=== PATIENT | female | born 1935 | race Caucasian/White ===

== ENCOUNTER → 2017-03-07 | Outpatient (CLI) | payer MEDICARE ==
--- NOTE | 2017-03-07 16:09 | BD ---
EXAMINATION TYPE: MG DEXA axial skeleton. DATE OF EXAM: 03/07/2017 COMPARISON: 2011 CLINICAL HISTORY: post menopausal Height: 5'3 1/2 Weight: 210 FRAX RISK QUESTIONS: Alcohol (3 or more units per day): no Family History (Parent hip fracture): yes Glucocorticoids (More than 3mos): no (Ex: prednisone, prednisolone, methylprednisolone, dexamethasone, and hydrocortisone). History of Fracture in Adulthood: no Secondary Osteoporosis: 1. Type 1 Diabetes: no 2. Hyperthyroidism: no 3. Menopause before 45: yes 4. Malnutrition: no 5. Chronic liver disease: no Rheumatoid Arthritis: no Current Tobacco Use: no RISK FACTORS HISTORY OF: Family History of Osteoporosis: Active: Postmenopausal woman: MEDICATIONS: Thyroid Medications: Which medication: Levothyroxine How Lon-3 years Additional Medications: heart rythmn, cholesterol, type 2 diabetes, kidney meds Additional History: EXAM MEASUREMENTS: Bone mineral densitometry was performed using the [employer] System. Bone mineral density as measured about the Lumbar spine is: ----- L1-L4(G/cm2): 1.375 T Score Values are as follows: ----- L2: -0.2 ----- L3: 1.8 ----- L4: 2.6 ----- L1-L4:1.0 Bone mineral density has: Increased 3.5% since study of: 05/18/2012 Bone mineral density about the R hip (g/cm2): 1.287 Bone mineral density about the L hip (g/cm2): 1.114 T Score values are as follows: -----R Neck: 1.8 -----L Neck: 0.5 -----R Total: 1.4 -----L Total: 1.0 Bone mineral density has: Decreased -1.9% since study of: 05/18/2012 IMPRESSION: Normal (Values between +1 and -1 indicate normal bone mass). Consider repeating this study in 5 year s or sooner if there is some new clinical indication. NOTE: T-SCORE=SD OF THE YOUNG ADULT MEAN.
--- NOTE | 2017-03-08 13:10 | MM ---
Reason for exam: screening (asymptomatic). Last mammogram was performed 4 years and 10 months ago. History: Patient is postmenopausal and has history of other cancer at age 80. Took estrogen for 10 years beginning at age 57. Physical Findings: A clinical breast exam by your physician is recommended on an annual basis and results should be correlated with mammographic findings. MG 3D Screening Mammo W/Cad Bilateral CC and MLO view(s) were taken. Prior study comparison: May 18, 2012, bilateral digital screening mammo w/CAD. May 14, 2011, bilateral digital screening mammo w/CAD. April 09, 2010, bilateral digital screening mammogram. The breast tissue is almost entirely fat. No significant changes when compared with prior studies. ASSESSMENT: Negative, BI-RAD 1 RECOMMENDATION: Routine screening mammogram of both breasts in 1 year.
== END | disposition home or self-care (01) ==
LOC: RADMAMWWP 15:05
PROVIDERS: ATTEND Internal Medicine
DX: Z12.31 Encounter for screening mammogram for malignant neoplasm of breast (principal); Z78.0 Asymptomatic menopausal state
CPT/HCPCS: 77080; 77063; G0202

== ENCOUNTER → 2019-03-28 | Outpatient (CLI) | payer MEDICARE ==
--- NOTE | 2019-04-13 12:00 | EM ---
EVENT MONITOR AGE: 83 SEX: Female. INDICATIONS: Patient was monitored between the 28 of March and the March. The rhythm strip reviewed showed an underlying sinus mechanism with an episode of atrial tachycardia with single PVCs noted. There was episode of sinus arrhythmia. The arrhythmia was not associated with any reported symptoms. MMRONDA / ALYN: [id number] /
== END ==
LOC: RADECHMAIN 11:36
PROVIDERS: ATTEND Internal Medicine
DX: I49.9 Cardiac arrhythmia, unspecified (principal)
CPT/HCPCS: 93270

== ENCOUNTER → 2020-04-01 | Outpatient (CLI) | payer MEDICARE ==
--- NOTE | 2020-04-01 19:37 | CT ---
EXAMINATION TYPE: CT brain wo con DATE OF EXAM: 04/01/2020 COMPARISON: None HISTORY: Stroke, post tpa. H/o falls. CT DLP: 1317 mGycm Automated exposure control for dose reduction was used. FINDINGS: Moderate generalized degenerative change. Low-attenuation in the white matter is nonspecific but most typical remote microvascular ischemia. No midline shift. Dental artifact noted. Intraorbital structures have a normal appearance. No changes of sinusitis. Craniocervical junction ma intained. Sella turcica normal. IMPRESSION: DEGENERATIVE AND NONSPECIFIC WHITE MATTER CHANGES MOST TYPICAL OF REMOTE MICROVASCULAR ISCHEMIA WITH NO DEFINITE ACUTE PROCESS.
== END | disposition home or self-care (01) ==
LOC: RADCTMAIN 16:55
PROVIDERS: ATTEND Internal Medicine
DX: G31.9 Degenerative disease of nervous system, unspecified (principal)
CPT/HCPCS: 70450

== ENCOUNTER → 2021-01-14 | Outpatient (CLI) | payer MEDICARE ==
--- NOTE | 2021-01-15 07:22 | US ---
EXAMINATION TYPE: US kidneys/renal and bladder DATE OF EXAM: 01/14/2021 COMPARISON: NONE CLINICAL HISTORY: N18.2 stage 2 kidney disease. EXAM MEASUREMENTS: Right Kidney: 10.0 x 4.3 x 3.9 cm Left Kidney: 10.1 x 4.8 x 4.5 cm Right Kidney: No hydronephrosis or masses seen Left Kidney: No hydronephrosis or masses seen Bladder: wnl Bilateral Jets seen: no There is no evidence for hydronephrosis at this point in time. No nephrolithiasis is seen. No josue s are identified. The urinary bladder is anechoic. IMPRESSION: No hydronephrosis.
== END | disposition home or self-care (01) ==
LOC: RADUSWWP 15:49
PROVIDERS: ATTEND Internal Medicine
DX: N18.2 Chronic kidney disease, stage 2 (mild) (principal)
CPT/HCPCS: 76770

== ENCOUNTER → 2021-11-10 | Outpatient (CLI) | payer MEDICARE ==
--- NOTE | 2021-11-10 12:45 | BD ---
EXAMINATION TYPE: Axial Bone Density DATE OF EXAM: 11/10/2021 COMPARISON: NONE CLINICAL HISTORY: 86 years year old Female. ICD-10 CODE: M81.0 Age-related osteoporosis without curr ent pathological Height: 63 Weight: 196.0 FRAX RISK QUESTIONS: Alcohol (3 or more units per day): no Family History (Parent hip fracture): yes Glucocorticoids (More than 3mos): no (Ex: prednisone, prednisolone, methylprednisolone, dexamethasone, and hydrocortisone). History of Fracture in Adulthood: no Secondary Osteoporosis: 1. Type 1 Diabetes: no 2. Hyperthyroidism: no 3. Menopause before 45: yes 4. Malnutrition: no 5. Chronic liver disease: no Rheumatoid Arthritis: no Current Tobacco Use: no RISK FACTORS HISTORY OF: Surgery to Spine/Hip(right/left)/Wrist (right/left): no Family History of Osteoporosis: yes Active: no Diet low in dairy products/other sources of calcium: no Postmenopausal woman: yes Lost more than 2 inches in height since high school: yes MEDICATIONS:diabetic meds Thyroid Medications: levothyroxine How Long: long time Additional History: EXAM MEASUREMENTS: Bone mineral densitometry was performed using the [employer] System. Bone mineral density as measured about the Lumbar spine is: ----- L1-L4(G/cm2): 1.462 T Score Values are as follows: ----- L1: -0.2 ----- L2: 3.0 ----- L3: 1.7 ----- L4: 4.3 ----- L1-L4: 2.3 Bone mineral density has: increased 13.7 % since study of: 03.07.2017 Bone mineral density about the R hip (g/cm2): 1.327 Bone mineral density about the L hip (g/cm2): 1.180 T Score values are as follows: -----R Neck: 2.1 -----L Neck: 1.0 -----R Total: 1. -----L Total: 1.3 Bone mineral density has:increased 1.6% since study of 03.07.2017 FRAX%s: The graph provided illustrates a 8.6%chance for a major osteoporotic fx and a 2.7%ance for th e hips probability for fx in 10 years time. IMPRESSION: Normal (Values between +1 and -1 indicate normal bone mass). Consider repeating this study in 5 year s or sooner if there is some new clinical indication. NOTE: T-SCORE=SD OF THE YOUNG ADULT MEAN.
--- NOTE | 2021-11-11 11:23 | MM ---
Reason for exam: screening (asymptomatic). Last mammogram was performed 4 years and 8 months ago. History: Patient is postmenopausal and has history of other cancer at age 80. Took estrogen for 10 years beginning at age 57. Physical Findings: A clinical breast exam by your physician is recommended on an annual basis and results should be correlated with mammographic findings. MG 3D Screening Mammo W/Cad Bilateral CC, MLO, and XCCL view(s) were taken. Prior study comparison: March 07, 2017, bilateral MG 3d screening mammo w/cad. May 18, 2012, bilateral digital screening mammo w/CAD. There are scattered fibroglandular densities. There is no discrete abnormality. No significant changes when compared with prior studies. ASSESSMENT: Negative, BI-RAD 1 RECOMMENDATION: Routine screening mammogram of both breasts in 1 year.
== END | disposition home or self-care (01) ==
LOC: RADMAMWWP 11:32
PROVIDERS: ATTEND Internal Medicine
DX: Z12.31 Encounter for screening mammogram for malignant neoplasm of breast (principal); M81.0 Age-related osteoporosis without current pathological fracture; I34.0 Nonrheumatic mitral (valve) insufficiency; I65.23 Occlusion and stenosis of bilateral carotid arteries
CPT/HCPCS: 77063; 77067; 77080

== ENCOUNTER → 2023-11-16 | Outpatient (CLI) | payer MEDICARE ==
--- NOTE | 2023-11-16 15:14 | US ---
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 Indirect Doppler criteria was utilized. FINDINGS: EXAM MEASUREMENTS: RIGHT: Peak Systolic Velocity (PSV) cm/sec ----- Right CCA: 57.8 ----- Right ICA: 37.7 ----- Right ECA: 61.1 ICA/CCA ratio: 0.98 RIGHT: End Diastole cm/sec ----- Right CCA: 9.1 ----- Right ICA: 10.1 ----- Right ECA: 1.0 LEFT: Peak Systolic Velocity (PSV) cm/sec ----- Left CCA: 70.2 ----- Left ICA: 58.3 ----- Left ECA: 73.5 ICA/CCA ratio: 1.21 LEFT: End Diastole cm/sec ----- Left CCA: 3.25 ----- Left ICA: 17.4 ----- Left ECA: 8.72 VERTEBRALS (direction of flow): Right Vertebral: Antegrade Left Vertebral: Antegrade Rhythm: Normal AQUATICS MANAGER NOTES: No elevated velocities IMPRESSION: No significant hemodynamic stenosis by carotid Doppler ultrasound. Criteria for Assigning % of Stenosis / Diameter reduction (Estimation based on the indirect measurements of the internal carotid artery velocities (ICA PSV). 1. Normal (no stenosis)=ICA PSV < 125 cm/s: ratio < 2.0: ICA EDV<40 cm/s. 2. Less than 50% stenosis=ICA PSV < 125 cm/s: ratio < 2.0: ICA EDV<40 cm/s. 3. 50 to 69% stenosis=ICA PSV of 125 to 230 cm/s: ration 2.0 ? 4.0: ICA EDV 40-100 cm/s. 4. Greater than 70% stenosis to near occlusion= ICA PSV > 230 cm/s: ratio > 4.0: ICA EDV > 100 cm/s. 5. Near occlusion= ICA PSV velocities may be low or undetectable: variable ratio and ICA EDV. 6. Total occlusion=unable to detect flow.
--- NOTE | 2023-11-17 15:36 | CA ---
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 18 - 58 / 22 - 52 cm??? LA Volume Index 18.3 cm???/m??? 16 - 28 cm???/m??? M-MODE Aortic Root Diameter MM 3.1 cm LA Systolic Diameter MM 3.9 cm LA Ao Ratio MM 1.3 AV Cusp Separation MM 2.0 cm DOPPLER AV Peak Velocity 149.7 cm/s AV Peak Gradient 9.0 mmHg AV Mean Velocity 106.9 cm/s AV Mean Gradient 5.2 mmHg AV Velocity Time Integral 31.7 cm LVOT Peak Velocity 96.0 cm/s LVOT Peak Gradient 3.7 mmHg LVOT Velocity Time Integral 18.4 cm MV Area PHT 3.6 cm??? Mitral E Point Velocity 61.6 cm/s Mitral A Point Velocity 92.1 cm/s Mitral E to A Ratio 0.7 MV Deceleration Time 208.0 ms MV E' Velocity 4.2 cm/s Mitral E to MV E' Ratio 14.8 TR Peak Velocity 221.1 cm/s TR Peak Gradient 19.5 mmHg Right Ventricular Systolic Press 22.6 mmHg FINDINGS Left Ventricle Mildly increased left ventricular wall thickness. Left ventricular cavity size normal. Normal left ventricular systolic function with no obvious regional wall motion abnormalities. Left ventricular ejection fraction is estimated at 55-60 %. Grade 1 diastolic dysfunction. Right Ventricle Normal right ventricular size and function. Right Atrium Normal right atrial size. Left Atrium Normal left atrial size. Mitral Valve Structurally normal mitral valve. Mild mitral annular calcification. Mild mitral regurgitation. Aortic Valve Trileaflet aortic valve. No aortic valve stenosis or regurgitation. Thickened aortic valve without stenosis. Tricuspid Valve Structurally normal tricuspid valve. Mild tricuspid regurgitation. Pulmonic Valve Structurally normal pulmonic valve. Pericardium No pericardial effusion. Aorta Normal size aortic root and proximal ascending aorta. CONCLUSIONS Normal LV size and systolic function mild mitral regurgitation Mild aortic sclerosis Previewed by: Dr. Tan Skaggs MD (Electronically Signed) Final Date: 17 November 2023 15:35
== END | disposition home or self-care (01) ==
LOC: RADECHMAIN 12:38
PROVIDERS: ATTEND Internal Medicine
DX: I34.0 Nonrheumatic mitral (valve) insufficiency (principal); I65.23 Occlusion and stenosis of bilateral carotid arteries
CPT/HCPCS: 93306; 93880